=== PATIENT | male | born 1990 | race Caucasian/White ===

== ENCOUNTER 2021-10-27 12:58 | Inpatient (IN) | payer BC, SELFPAY ==
[2021-10-27] VITALS (17 sets, daily range): BP systolic 116–138; BP diastolic 67–87; PULSE 68–105; RESP 16–22; TEMP 36.5–37; O2SAT 96–100; BMI 23.1
--- NOTE | 2021-10-27 15:00 | W.ED.GENADLT ---
HPI - General Adult General: Chief complaint: General Medical Stated complaint: infection in the rectum Time Seen by Provider: 10/27/21 15:00 History of Present Illness: Mr. Proctor is a 31-year-old gentleman without significant past medical history presents to the emergency department due to rectal pain. Onset of symptoms was approximately 4 to 5 days ago and nontraumatic. He denies specific known inciting events. Since that time he has had near constant rectal pain worse with bowel movements and urinating. Intensity symptoms moderate to severe. He has had similar episodes in the past 2 that was cured with antibiotics. Unsure of the exact etiology. No fevers though does feel mildly nauseous. No other signs systemic illness. No other specific changes in health, exacerbating, or alleviating factors identified. Onset (ago): day(s) Radiation: non-radiation Severity: severe Exacerbating factors: other Review of Systems General: Reports: 10 or more systems reviewed and unremarkable except in HPI and below PFSH ED PFSH: Medical History Perirectal abscess Family History Brother Cancer Other Diabetes Social History Smoking and tobacco status: current every day smoker cigarettes Packs smoked per day: 1 Alcohol intake: never Physical Exam Const: COMMON NORMALS: alert GENERAL APPEARANCE: cooperative and well developed HENMT: COMMON NORMALS: normocephalic and atraumatic HEAD & SCALP: normocephalic and atraumatic Eye: COMMON NORMALS: conjunctivae normal CONJUNCTIVA: Yes conjunctivae normal SCLERA: sclerae normal Neck/C-Spine: COMMON NORMALS: supple GENERAL: Yes trachea midline Resp: COMMON NORMALS: normal respiratory effort and clear to auscultation bilaterally EFFORT & INSPECTION: Yes able to speak in complete sentences AUSCULTATION: clear to auscultation bilaterally Cardio: COMMON NORMALS: regular rhythm RATE: tachycardic RHYTHM: regular rhythm GI: COMMON NORMALS: Soft to palpation PALPATION: Yes Soft to palpation and No Tenderness to palpation present (GI) : OTHER: Rectal exam performed with steel fabricator present. No external abnormalities or fissures identified. Patient does not localize tenderness to one particular o'clock position. No evidence of erythema or purulent discharge. Limited palpation on digital rectal exam secondary to pain with diffuse tenderness, no palpable abnormality identified. Extremity: GENERAL: Yes normal exam except as noted and No edema Neuro: COMMON NORMALS: moves all extremities SENSORIUM/ORIENTATION: Yes alert and No Orientation impaired Psych: COMMON NORMALS: mental status grossly normal and Normal thought process present THOUGHT PROCESS: Normal thought process present Course ED course: - Patient was seen and evaluated by me at bedside - Patient placed on cardiac monitors, IV access obtained - Initial evaluation notable for exam as above - Labs and xrays personally interpreted by me - Fluids, analgesia given - Labs notable for leukocytosis, normal hemoglobin. Metabolic panel without significant abnormality. - Imaging notable for rectal abscess and possible enteritis though rectal abscess more likely explains patient's symptoms - Upon serial reexamination after treatment the patient was mildly improved only transiently with continued pain requiring opioid analgesics - Based on patient history, evaluation, and testing as interpreted the most likely cause of the patient's condition is rectal abscess - The results of ED evaluation were discussed with the patient including plan for admission due to requirement for level of care not available if discharged to prevent significant worsening/deterioration. - Discussed case with [facility]ACH[facility] P[employer]ER who discussed case with Dr Dewey with the general surgery service and he agreed to admit the patient for planned operative management in the morning - Patient was admitted without further deterioration or significant events. Note: Click bubbles or prepopulated goyal in note writing are used for assistance with data collection and billing and are inherently more limited than narrative and other text portions of this note. Please use narrative for additional clinical history and defer to narrative/free test for any case of contradictory information. If information appears in only free text or click bubble it should be considered present or absent as reported. Please contact note typewriters functional tester for clarifications of clinical information or contradictory information. MDM is a brief summary, contradictory or erroneous seeming information should be clarified and full note should be reviewed. Vital Signs: Vital signs: Vital Signs Temperature 98.1 F 10/30/21 11:33 Pulse Rate 78 10/30/21 11:33 Respiratory Rate 16 10/30/21 11:33 Blood Pressure 111/65 10/30/21 11:33 Pulse Oximetry 97 10/30/21 11:33 Oxygen Delivery Id thod 10/30/21 07:51 MDM - General Adult Medical Decision Making 31-year-old male presenting with nontraumatic rectal pain. Found to have rectal abscess. Admitted for operative intervention. Medical Records I reviewed the patient's medical records. Lab Data I reviewed the patient's lab results. : 10/29/21 10:58 10/29/21 10:58 Radiology Impressions Abdomen/Pelvis CT 10/27/21 15:21 IMPRESSION: 1. Crescentic 2.3 by 1.3 cm fluid collection along the posterior aspect of the rectum/anus concerning for an abscess, finding best seen series 4, image 91. 2. Prominent fluid in the small bowel without dilation suggestive of an enteritis. Laboratory Results WBC 14.7 10^3/uL (4.0-10.0) H 10/27/21 15:10 RBC 4.98 10^6/uL (4.1-5.3) 10/27/21 15:10 Hgb 15.7 g/dL (11.7-16.6) 10/27/21 15:10 Hct 46.3 % (42.0-52.0) 10/27/21 15:10 MCV 93.0 fl (80-94) 10/27/21 15:10 MCH 31.5 pg (28.0-34.0) 10/27/21 15:10 MCHC 33.9 g/dL (30.0-36.0) 10/27/21 15:10 RDW 13.3 % (12.1-15.1) 10/27/21 15:10 Plt Count 196 10^3/cmm (130-400) 10/27/21 15:10 MPV 11.7 fL (7.4-10.4) H 10/27/21 15:10 Neut % (Auto) 80.6 % 10/27/21 15:10 Lymph % (Auto) 11.4 % 10/27/21 15:10 [place] % (Auto) 6.6 % 10/27/21 15:10 Eos % (Auto) 0.7 % 10/27/21 15:10 Baso % (Auto) 0.3 % 10/27/21 15:10 Neut # (Auto) 11.84 10^3/uL (1.8-7.7) H 10/27/21 15:10 Lymph # (Auto) 1.7 10^3/uL (0.8-4.8) 10/27/21 15:10 [place] # (Auto) 1.0 10^3/uL (0.2-0.9) H 10/27/21 15:10 Eos # (Auto) 0.1 10^3/uL (0.0-0.8) 10/27/21 15:10 Baso # (Auto) 0.1 10^3/uL (0.0-0.1) 10/27/21 15:10 Nucleated RBC % (auto) 0 % 10/27/21 15:10 Nucleated RBCs # 0.0 /100WBC 10/27/21 15:10 Sodium 136 mmol/L (136-145) 10/27/21 15:10 Potassium 3.7 mmol/L (3.5-5.1) 10/27/21 15:10 Chloride 102 mmol/L (98-107) 10/27/21 15:10 Carbon Dioxide 25 mmol/L (22-29) 10/27/21 15:10 Anion Gap 12.7 (5-19) 10/27/21 15:10 BUN 8 mg/dL (6-20) 10/27/21 15:10 Creatinine 0.7 mg/dL (0.7-1.2) 10/27/21 15:10 GFR Calculation 130.7 mL/min (90-130) H 10/27/21 15:10 Glucose 96 mg/dL (65-115) 10/27/21 15:10 Calculated Osmolality 280 mOsm/kg (285-295) L 10/27/21 15:10 Calcium 9.5 mg/dL (8.5-10.5) 10/27/21 15:10 Urine Color Yellow (Yellow) 10/27/21 16:30 Urine Appearance Clear (CLEAR) 10/27/21 16:30 Urine pH 7 (5-7) 10/27/21 16:30 Ur Specific [place] 1.005 (1.005-1.030) 10/27/21 16:30 Urine Protein Neg (Negative) 10/27/21 16:30 Urine Glucose (UA) Norm (Normal) 10/27/21 16:30 Urine Ketones 1+ (Negative) H 10/27/21 16:30 Urine Blood Neg (Negative) 10/27/21 16:30 Urine Nitrate Negative (Negative) 10/27/21 16:30 Urine Bilirubin Neg (Negative) 10/27/21 16:30 Urine Urobilinogen 1 mg/dL (Negative) H 10/27/21 16:30 Ur Leukocyte Esterase Negative (Negative) 10/27/21 16:30 Discharge Plan Discharge Patient Disposition: Placed in Observation Admit Provider: Ricky Dewey Clinical Impression: Abscess, perianal Discharge Diet: Advance as tolerated Discharge Activity: Resume usual activity Coding Level of Care Code ED Machine Shop Specialist for Jamaal Fwd Exam Comprehensive
[2021-10-27 15:14] LABS: Basophils # 0.1 10^3/uL (0.0-0.1); Basophils % 0.3 %; Eosinophils # 0.1 10^3/uL (0.0-0.8); Eosinophils % 0.7 %; Hematocrit 46.3 % (42.0-52.0); Hemoglobin 15.7 g/dL (11.7-16.6); Lymphocytes # 1.7 10^3/uL (0.8-4.8); Lymphocytes % 11.4 %; Mean Corpuscular HGB Conc 33.9 g/dL (30.0-36.0); Mean Corpuscular Hemoglobin 31.5 pg (28.0-34.0); Mean Platelet Volume 11.7 fL (7.4-10.4); Monocytes % 6.6 %; Neutrophils # 11.84 10^3/uL (1.8-7.7); Neutrophils % 80.6 %; Nucleated Red Blood Cells % 0 %; Platelet Count 196 10^3/cmm (130-400); Red Blood Count 4.98 10^6/uL (4.1-5.3); Red Cell Distribution Width 13.3 % (12.1-15.1); White Blood Count 14.7 10^3/uL (4.0-10.0)
--- NOTE | 2021-10-27 15:21 | CTR_ITS ---
PROCEDURE INFORMATION: Exam: CT Abdomen And Pelvis With Contrast Exam date and time: 10/27/2021 3:51 PM Age: 31 years old Clinical indication: Abdominal pain; Acute; Additional info: Rectal pain, leukocytosis, eval deep infection/colitis TECHNIQUE: Imaging protocol: Computed tomography of the abdomen and pelvis with contrast. Radiation optimization: All CT scans at this facility use at least one of these dose optimization techniques: automated exposure control; mA and/or kV adjustment per patient size (includes targeted exams where dose is matched to clinical indication); or iterative reconstruction. Contrast material: OMNIPAQUE 350; Contrast volume: 80 ml; Contrast route: INTRAVENOUS (IV); COMPARISON: No relevant prior studies available. RADIATION DOSE METRICS: Total DLP (mGy-cm): 556.23 FINDINGS: Liver: Normal. No mass. Gallbladder and bile ducts: Normal. No calcified stones. No ductal dilation. Pancreas: Normal. No ductal dilation. Spleen: Normal. No splenomegaly. Adrenal glands: Normal. No mass. Kidneys and ureters: Normal. No hydronephrosis. Stomach and bowel: Crescentic 2.3 by 1.3 cm fluid collection along the posterior aspect of the rectum/anus concerning for an abscess, finding best seen series 4, image 91. Prominent fluid in the small bowel without dilation suggestive of an enteritis. Appendix: No evidence of appendicitis. Intraperitoneal space: Unremarkable. No free air. No significant fluid collection. Vasculature: Unremarkable. No abdominal aortic aneurysm. Lymph nodes: Unremarkable. No enlarged lymph nodes. Urinary bladder: Unremarkable as visualized. Reproductive: Unremarkable as visualized. Bones/joints: Unremarkable. No acute fracture. Soft tissues: Unremarkable. CT/CT abdomen pelvis w con* [id number] IMPRESSION: 1. Crescentic 2.3 by 1.3 cm fluid collection along the posterior aspect of the rectum/anus concerning for an abscess, finding best seen series 4, image 91. 2. Prominent fluid in the small bowel without dilation suggestive of an enteritis.
[2021-10-27] MEDS: morphine 4 mg/mL SDV 1 mL IVP (15:27)
[2021-10-27] MEDS: sodium chloride 0.9% 1,000 ML 999 ML IV (15:28)
[2021-10-27 15:30] LABS: Blood Urea Nitrogen 8 mg/dL (6-20); Calcium 9.5 mg/dL (8.5-10.5); Carbon Dioxide 25 mmol/L (22-29); Chloride 102 mmol/L (98-107); Glomerular Filtration Rate 130.7 mL/min (90-130); Glucose 96 mg/dL (65-115); Osmolality Calculated 280 mOsm/kg (285-295); Sodium 136 mmol/L (136-145)
[2021-10-27 15:31] LABS: Anion Gap 12.7 (5-19); Potassium 3.7 mmol/L (3.5-5.1)
[2021-10-27] MEDS: fentaNYL 50 mcg/mL INJ 2mL IVP ×2 (15:41→16:33)
[2021-10-27] MEDS: iohexol 350 mg/mL 100 mL Btl IV (15:53)
[2021-10-27 16:32] LABS: Add Urine Microscopic? NO; Charge for UA Resulting for Rev
[2021-10-27 16:34] LABS: Urine Appearance Clear (CLEAR); Urine Color Yellow (Yellow); pH Urine 7 (5-7)
[2021-10-27 16:35] LABS: Bilirubin Urine Neg (Negative); Blood Urine Neg (Negative); Glucose Urine UA Norm (Normal); Ketones Urine 1+ (Negative); Leukocyte Esterase Urine Negative (Negative); Nitrate Urine Negative (Negative); Protein Urine Neg (Negative); Specific Gravity, Urine 1.005 (1.005-1.030); Urobilinogen Urine 1 mg/dL (Negative)
[2021-10-27] MEDS: HYDROmorphone 1 mg/mL INJ 1 mL 0.5 MG IVP (17:13)
[2021-10-27] MEDS: acetaminophen 500 mg Tablet 1000 MG PO (17:57)
[2021-10-27] MEDS: ketorolac 30 mg/mL INJ 15 MG IVP (17:58)
[2021-10-27] MEDS: HYDROmorphone 1 mg/mL INJ 1 mL IVP ×4 (17:58→23:45)
[2021-10-27] MEDS: ciprofloxacin 400 MG/200 ML PREMIX 200 MG IV (19:08)
[2021-10-27] MEDS: sodium chloride 0.9% 1,000 ML 100 ML IV ×2 (19:09→22:12)
[2021-10-27] MEDS: metroNIDAZOLE IV 500 MG/100 ML PREMIX 100 MG IV (19:26)
--- NOTE | 2021-10-27 20:07 | PC.NURSE ---
report called to JESICA Nguyễn, patient accepted to room 267.
[2021-10-27] MEDS: ondansetron 2 mg/ML SDV 2 mL 4 MG IVP (22:11)
[2021-10-28] VITALS (23 sets, daily range): BP systolic 110–157; BP diastolic 51–79; PULSE 70–96; RESP 12–20; TEMP 36.1–37.1; O2SAT 82–99
[2021-10-28] MEDS: metroNIDAZOLE IV 500 MG/100 ML PREMIX 100 MG IV ×3 (03:03→19:34)
[2021-10-28] MEDS: HYDROmorphone 1 mg/mL INJ 1 mL IVP ×4 (03:37→10:54)
[2021-10-28] MEDS: ondansetron 2 mg/ML SDV 2 mL 4 MG IVP ×3 (03:38→13:20)
[2021-10-28] MEDS: ciprofloxacin 400 MG/200 ML PREMIX 200 MG IV ×2 (06:26→17:48)
--- NOTE | 2021-10-28 09:00 | PC.NURSE ---
patient to OR via stretcher in stable condition
--- NOTE | 2021-10-28 09:10 | P.HP_ITS ---
Providers/Chief Complaint Admitting Physician: Ricky Dewey DO Chief Complaint: infection in the rectum History of Present Illness Aly Proctor is a 31 year old male who presented to the hospital with a 16-day history of perirectal pain. He has a history of perirectal pain in the past treated 4 years ago with antibiotics. In the ER he got a CT of the rectum and pelvis which showed a small crescent of abscess surrounding the rectum distally. He denies any fever or chills. Denies any nausea or vomiting. The pain is dull to sharp and constant having a bowel movement or palpation makes pain worse. Nothing makes pain better. Pain does not radiate. He reports migraine headache. Review of Systems General: Reports: 10 or more systems reviewed and unremarkable except in HPI and below Medications/Allergies Home Medications Medication Instructions Recorded Confirmed Last Taken Type acetaminophen 500 mg capsule 1,000 mg PO Q6H PRN Pain 10/27/21 10/27/21 10/27/21 History Allergies Allergy/AdvReac Type Severity Reaction Status Date / Time No Known Allergies Allergy Verified 10/27/21 17:44 Vitals/I&O/Wt Last Vital Signs Temp 98.5 F 10/28/21 07:47 Pulse 93 10/28/21 07:47 Resp 18 10/28/21 08:53 BP 145/72 10/28/21 07:47 Pulse Ox 95 10/28/21 07:47 O2 Del Method 10/28/21 07:47 10/27/21 10/28/21 10/28/21 22:59 06:59 14:59 Intake Total 2300 / 2300 580 / 2880 1200 / 1200 Output Total 700 / 700 Balance 2300 / 2300 -120 / 2180 1200 / 1200 Weight last 48 hrs Weight 200 lb Physical Exam Narrative: General : Patient is well developed , no acute distress, oriented x3 Head : Normal cephalic, a-traumatic. Ears : Pinnae and external canal are normal. Hearing is normal. Eyes : PERRLA, Sclera and injection are normal. No conjunctival discharge. Nose : Mucous membranes are without erythema. Throat : buccal mucosa is normal, gums are without significant recession or hypertrophy. Lungs : Equal chest rise bilaterally, no use of accessory muscles, trachea is midline. Cor : Rate and rhythm are normal. Abdomen : Soft, ND, NT, no g/r/m Rectum: Tenderness palpation perirectally, especially on the right side. No fluctuance palpated Extremities : No edema, no cyanosis or clubbing, dorsalis pedis pulses are present bilaterally, non-tender to palpation of calves. Upper extremities are normal bilaterally. Back : non-tender to palpation, no CVA tenderness. Neuro : CN II - XII intact, Upper and lower extremities have equal and full strength Data : 10/27/21 15:10 10/27/21 15:10 Micro: Microbiology 10/27/21 18:20 Blood Culture - Preliminary Blood SPECIMEN COLLECTED 10/27/21 18:15 Blood Culture - Preliminary Blood SPECIMEN COLLECTED A&P Assessment and plan (1) Perirectal abscess: Status: Acute Plan Antibiotics Pain control 2 OR for incision and drainage of perirectal abscess I fully explained to him the risks of the surgery. There is a real risk of perirectal/perianal fistula from the abscess itself in from the procedure. There is a risk of damage to the rectum/sphincter. Risk of scar, numbness, pain, recurrence, damage to surrounding tissues, incontinence, or explained to the patient. He is understand the risks and wishes to proceed. Attestations Medical Necessity Statement*: Patient requires at least 1 more night in the hospital for IV antibiotics and dressing changes in the morning Coding Level of Care Code Acute [employer] Dynamics Ax Developer for Jamaal Murphy Diagnoses Perirectal abscess K61.1
[2021-10-28] MEDS: sodium chloride 0.9% 1,000 ML 30 ML IV (09:24)
--- NOTE | 2021-10-28 10:04 | PM.OP ---
Operative Report Date of procedure: October 28, 2021 Pre-op diagnosis: Perirectal abscess Post-op diagnosis: same Procedure done: Incision and drainage of perirectal abscess Specimens removed/disposition: Cultures Surgeon: Dr. Ricky Dewey DO Anesthesia: MAC Estimated blood loss (mL): 2 Complications: None apparent Brief History: This is a 31-year-old gentleman with a chronic perirectal abscess. Incision and drainage was indicated. He had significant pain. The risks and benefits were explained and documented. Procedure: Timeout was performed all present were in agreement. The perianal area was inspected prepped and draped in usual sterile fashion. 2% lidocaine with epinephrine was used to anesthetize just right of the anus. Hemostats were used to probe in the intrasphincteric space. Minimal purulence was found. Cultures were taken. Quarter inch I oh to form was placed into the tract. Sterile dressings were applied. Patient tolerated procedure well.
--- NOTE | 2021-10-28 10:31 | ANES.PREANE2 ---
Pre-Anesthetic Assessment Height/Weight: Height 1.98 m Weight 90.718 kg Temp Pulse Resp BP Pulse Ox O2 Del Method 97 F L 81 12 113/51 96 10/28/21 10:12 10/28/21 10:25 10/28/21 10:25 10/28/21 10:25 10/28/21 10:25 10/28/21 10:25 Operation Date: 10/28/21 10:10 Proposed Procedures p Incision And Drainage Perianal Abscess(Not Applicable) - Ricky Dewey DO Familial anesthetic complications: none Was Beta Roberto taken within 24 hours: N/A Was Clonidine taken within 24 hours: N/A Last intake: Intake Last Liquid Date 10/27/21 Last Liquid Time 22:30 Last Solid Date 10/26/21 Last Solid Time 20:00 Social Tobacco and No alcohol Exam alert, oriented x 3 and regular rate & rhythm Airway Submandibular: within normal limits Cervical ROM: within normal limits Mallampati: Class I Dentition: chipped Pulmonary Chronic Obstructive Pulmonary Disease Anesthetic Plan ASA status: 2 Anesthesia: MAC Medications/Allergies Home Medications Medication Instructions Recorded Confirmed Last Taken Type acetaminophen 500 mg capsule 1,000 mg PO Q6H PRN Pain 10/27/21 10/27/21 10/27/21 History Allergies Allergy/AdvReac Type Severity Reaction Status Date / Time No Known Allergies Allergy Verified 10/27/21 17:44 Current Medications Generic Name Dose Route Start Last Admin Trade Name Freq PRN Reason Stop Dose Admin Hydromorphone HCl 1 mg 10/27/21 19:32 10/28/21 08:53 Hydromorphone 1 Mg/Ml Inj 1 Ml IVP 1 mg Q1H PRN Administration MODERATE TO SEVERE PAIN Ciprofloxacin/Dextrose 400 mg in 200 mls @ 200 mls/hr 10/27/21 18:00 10/28/21 07:28 Cipro IV Infused Q12H TANVIR Infusion Protocol Metronidazole 500 mg in 100 mls @ 100 mls/hr 10/27/21 18:00 10/28/21 10:02 Flagyl Iv IV Infused Q8H TANVIR Infusion Protocol Sodium Chloride 1,000 mls @ 100 mls/hr 10/27/21 18:00 10/28/21 09:00 Sodium Chloride 0.9% IV Infused .Q10H TANVIR Infusion Sodium Chloride 1,000 mls @ 30 mls/hr 10/28/21 09:15 10/28/21 09:24 Sodium Chloride 0.9% IV 10/29/21 09:14 30 mls/hr .Q24H TANVIR Administration Ondansetron HCl 4 mg 10/27/21 21:23 10/28/21 08:54 Ondansetron 2 Mg/Ml Sdv 2 Ml IVP 4 mg Q6H PRN Administration NAUSEA AND VOMITING Data Anesthesia : 10/27/21 15:10 10/27/21 15:10 Short CBC 10/27/21 Range/Units 15:10 WBC 14.7 H (4.0-10.0) 10^3/uL Hgb 15.7 (11.7-16.6) g/dL Hct 46.3 (42.0-52.0) % MCV 93.0 (80-94) fl Plt Count 196 (130-400) 10^3/cmm Neut % (Auto) 80.6 % Neut # (Auto) 11.84 H (1.8-7.7) 10^3/uL BMP 10/27/21 15:10 Sodium 136 Potassium 3.7 Chloride 102 Carbon Dioxide 25 BUN 8 Creatinine 0.7 Glucose 96 Calcium 9.5 Urine 10/27/21 Range/Units 16:30 Urine Color Yellow (Yellow) Urine Appearance Clear (CLEAR) Urine pH 7 (5-7) Ur Specific [place] 1.005 (1.005-1.030) Urine Protein Neg (Negative) Urine Glucose (UA) Norm (Normal) Urine Ketones 1+ H (Negative) Urine Nitrate Negative (Negative) Urine Bilirubin Neg (Negative) Ur Leukocyte Esterase Negative (Negative) Microbiology 10/27/21 18:20 Blood Culture - Preliminary Blood SPECIMEN COLLECTED 10/27/21 18:15 Blood Culture - Preliminary Blood SPECIMEN COLLECTED Cardiac Studies: No Data to Display
--- NOTE | 2021-10-28 10:32 | ANE.PACU2 ---
Inpatient post-anesthesia follow up: Airway intact: Yes Vital signs: Temperature 97 F Pulse Rate 81 Respiratory Rate 12 Blood Pressure 113/51 Pulse Oximetry 96 Oxygen Delivery Me thod Room Air Oxygen Flow Rate Fraction of Inspir ed Oxygen Hydration adequate: Yes Nausea and vomiting: Yes Pain level: 3 Mental status: Baseline
[2021-10-28] MEDS: sodium chloride 0.9% 1,000 ML 100 ML IV ×2 (10:54→23:33)
[2021-10-28] MEDS: ketorolac 30 mg/mL INJ IVP ×3 (11:18→22:40)
[2021-10-28] MEDS: HYDROcodone-acetaminophen 7.5-325 mg Tablet 1 TAB PO ×3 (12:03→23:38)
[2021-10-28] MEDS: metoclopramide 5 mg/mL SDV 2 mL IVP (13:55)
[2021-10-29] VITALS (7 sets, daily range): BP systolic 113–138; BP diastolic 64–80; PULSE 75–91; RESP 16–18; TEMP 36.7–37.8; O2SAT 96–99
[2021-10-29] MEDS: metoclopramide 5 mg/mL SDV 2 mL IVP ×4 (02:29→18:57)
[2021-10-29] MEDS: metroNIDAZOLE IV 500 MG/100 ML PREMIX 100 MG IV ×3 (02:46→21:40)
[2021-10-29] MEDS: HYDROcodone-acetaminophen 7.5-325 mg Tablet 1 TAB PO ×3 (03:43→12:39)
[2021-10-29] MEDS: ketorolac 30 mg/mL INJ IVP ×4 (04:56→21:41)
[2021-10-29] MEDS: ciprofloxacin 400 MG/200 ML PREMIX 200 MG IV ×2 (05:37→18:16)
[2021-10-29] MEDS: thiamine 100 mg Tablet PO (08:31)
[2021-10-29] MEDS: multivitamin therapeutic Tablet 1 TAB PO (08:31)
[2021-10-29] MEDS: folic acid 1 mg Tablet PO (08:31)
[2021-10-29 11:21] LABS: Basophils % 0.3 %; Eosinophils # 0.1 10^3/uL (0.0-0.8); Hematocrit 36.7 % (42.0-52.0); Lymphocytes # 1.5 10^3/uL (0.8-4.8); Lymphocytes % 14.1 %; Mean Corpuscular HGB Conc 32.7 g/dL (30.0-36.0); Mean Corpuscular Hemoglobin 30.8 pg (28.0-34.0); Mean Corpuscular Volume 94.3 fl (80-94); Mean Platelet Volume 11.8 fL (7.4-10.4); Monocytes % 9.9 %; Neutrophils # 7.63 10^3/uL (1.8-7.7); Neutrophils % 74.4 %; Nucleated Red Blood Cells % 0 %; Platelet Count 138 10^3/cmm (130-400); Red Blood Count 3.89 10^6/uL (4.1-5.3); Red Cell Distribution Width 13.2 % (12.1-15.1); White Blood Count 10.3 10^3/uL (4.0-10.0)
[2021-10-29] MEDS: sodium chloride 0.9% 1,000 ML 100 ML IV ×2 (11:30→21:42)
[2021-10-29 11:36] LABS: Anion Gap 13.5 (5-19); Blood Urea Nitrogen 5 mg/dL (6-20); Calcium 8.6 mg/dL (8.5-10.5); Carbon Dioxide 23 mmol/L (22-29); Chloride 106 mmol/L (98-107); Glomerular Filtration Rate 156.1 mL/min (90-130); Glucose 88 mg/dL (65-115); Osmolality Calculated 285 mOsm/kg (285-295); Potassium 3.5 mmol/L (3.5-5.1); Sodium 139 mmol/L (136-145)
--- NOTE | 2021-10-29 21:08 | P.PN_ITS ---
Subjective Subjective: Patient doing well. Pain much improved Vitals/I&O/Wt Last Vital Signs Temp 99.1 F 10/29/21 20:00 Pulse 81 10/29/21 20:00 Resp 17 10/29/21 20:00 BP 133/80 10/29/21 20:00 Pulse Ox 98 10/29/21 20:00 O2 Del Method 10/29/21 16:00 10/29/21 10/29/21 10/29/21 06:59 14:59 22:59 Intake Total 580 / 3900 1300 / 1300 240 / 1540 Output Total 1050 / 1755 1050 / 1050 500 / 1550 Balance -470 / 2145 250 / 250 -260 / -10 Physical Exam Narrative: General: No acute distress, awake alert and oriented x3 Skin: No erythema or exudate. Packing in place Data : 10/29/21 10:58 10/29/21 10:58 Micro: Microbiology 10/28/21 10:00 Anaerobic Culture - Preliminary Other Source 10/27/21 18:20 Blood Culture - Preliminary Blood NEGATIVE TO DATE 10/27/21 18:15 Blood Culture - Preliminary Blood NEGATIVE TO DATE A&P Assessment and plan (1) Perirectal abscess: Status: Acute Plan Likely discharge home tomorrow Attestations Medical Necessity Statement*: Patient needs 1 more day of IV antibiotics and will be discharged home tomorrow Coding Level of Care Code Acute Firearms Instructor for Jamaal Murphy Diagnoses Perirectal abscess K61.1
[2021-10-30] MEDS: metoclopramide 5 mg/mL SDV 2 mL IVP ×2 (01:36→08:51)
[2021-10-30] MEDS: metroNIDAZOLE IV 500 MG/100 ML PREMIX 100 MG IV (01:37)
[2021-10-30 04:00] VITALS: BP 121/69; PULSE 103; RESP 17; TEMP 37.8; O2SAT 98
[2021-10-30] MEDS: ketorolac 30 mg/mL INJ IVP (04:09)
[2021-10-30] MEDS: HYDROcodone-acetaminophen 7.5-325 mg Tablet 1 TAB PO (04:20)
[2021-10-30] MEDS: ciprofloxacin 400 MG/200 ML PREMIX 200 MG IV (05:42)
[2021-10-30 05:55] VITALS: RESP 18
[2021-10-30] MEDS: HYDROmorphone 1 mg/mL INJ 1 mL IVP (05:55)
[2021-10-30 07:51] VITALS: BP 111/65; PULSE 78; RESP 16; TEMP 36.7; O2SAT 97
--- NOTE | 2021-10-30 08:21 | PM.DCS ---
Discharge Providers Date of Admission: 10/27/21 18:06 Date of Discharge: October 30, 2021 Attending Provider at Admission: Ricky Dewey DO Attending Provider at Discharge: Ricky Dewey DO Diagnoses at Discharge Discharge Diagnosis (1) Perirectal abscess: Status: Acute Reason for Visit Reason for Visit: infection in the rectum Hospital Course Hospital Course 31-year-old male presented to hospital with 16 days of rectal pain. CT showed a small perirectal abscess. He was admitted and placed on IV antibiotics. He underwent incision and drainage of a perirectal abscess. Abscess cavity was found to be chronic with minimal purulence. He stayed 2 days for IV antibiotics and was discharged home in good condition Physical Exam Narrative: General : Patient is well developed , no acute distress, oriented x3 Head : Normal cephalic, a-traumatic. Ears : Pinnae and external canal are normal. Hearing is normal. Eyes : PERRLA, Sclera and injection are normal. No conjunctival discharge. Nose : Mucous membranes are without erythema. Throat : buccal mucosa is normal, gums are without significant recession or hypertrophy. Lungs : Equal chest rise bilaterally, no use of accessory muscles, trachea is midline. Cor : Rate and rhythm are normal. Abdomen : Soft, ND, NT, no g/r/m Extremities : No edema, no cyanosis or clubbing, dorsalis pedis pulses are present bilaterally, non-tender to palpation of calves. Upper extremities are normal bilaterally. Back : non-tender to palpation, no CVA tenderness. Neuro : CN II - XII intact, Upper and lower extremities have equal and full strength Discharge Data Studies Completed and Pending Completed Studies During Hospitalization Category Date Time Status CT abdomen pelvis w con* [id number] Stat Cat Scan 10/27/21 15:21 Completed Pending at discharge Category Date Time Status Anaerobic Culture Routine Lab 10/28/21 10:00 Results Blood Culture Stat Lab 10/27/21 18:20 Results Prothrombin Time INR Routine Lab 10/30/21 07:35 Ordered Wound Culture and Gram Stain Routine Lab 10/28/21 10:00 Results Radiology Impressions Abdomen/Pelvis CT 10/27/21 15:21 IMPRESSION: 1. Crescentic 2.3 by 1.3 cm fluid collection along the posterior aspect of the rectum/anus concerning for an abscess, finding best seen series 4, image 91. 2. Prominent fluid in the small bowel without dilation suggestive of an enteritis. Laboratory Results WBC 10.3 10^3/uL (4.0-10.0) H 10/29/21 10:58 RBC 3.89 10^6/uL (4.1-5.3) L 10/29/21 10:58 Hgb 12.0 g/dL (11.7-16.6) 10/29/21 10:58 Hct 36.7 % (42.0-52.0) L 10/29/21 10:58 MCV 94.3 fl (80-94) H 10/29/21 10:58 MCH 30.8 pg (28.0-34.0) 10/29/21 10:58 MCHC 32.7 g/dL (30.0-36.0) 10/29/21 10:58 RDW 13.2 % (12.1-15.1) 10/29/21 10:58 Plt Count 138 10^3/cmm (130-400) 10/29/21 10:58 MPV 11.8 fL (7.4-10.4) H 10/29/21 10:58 Neut % (Auto) 74.4 % 10/29/21 10:58 Lymph % (Auto) 14.1 % 10/29/21 10:58 [place] % (Auto) 9.9 % 10/29/21 10:58 Eos % (Auto) 1.0 % 10/29/21 10:58 Baso % (Auto) 0.3 % 10/29/21 10:58 Neut # (Auto) 7.63 10^3/uL (1.8-7.7) 10/29/21 10:58 Lymph # (Auto) 1.5 10^3/uL (0.8-4.8) 10/29/21 10:58 [place] # (Auto) 1.0 10^3/uL (0.2-0.9) H 10/29/21 10:58 Eos # (Auto) 0.1 10^3/uL (0.0-0.8) 10/29/21 10:58 Baso # (Auto) 0.0 10^3/uL (0.0-0.1) 10/29/21 10:58 Nucleated RBC % (auto) 0 % 10/29/21 10:58 Nucleated RBCs # 0.0 /100WBC 10/29/21 10:58 Sodium 139 mmol/L (136-145) 10/29/21 10:58 Potassium 3.5 mmol/L (3.5-5.1) 10/29/21 10:58 Chloride 106 mmol/L (98-107) 10/29/21 10:58 Carbon Dioxide 23 mmol/L (22-29) 10/29/21 10:58 Anion Gap 13.5 (5-19) 10/29/21 10:58 BUN 5 mg/dL (6-20) L 10/29/21 10:58 Creatinine 0.6 mg/dL (0.7-1.2) L 10/29/21 10:58 GFR Calculation 156.1 mL/min (90-130) H 10/29/21 10:58 Glucose 88 mg/dL (65-115) 10/29/21 10:58 Calculated Osmolality 285 mOsm/kg (285-295) 10/29/21 10:58 Calcium 8.6 mg/dL (8.5-10.5) 10/29/21 10:58 Urine Color Yellow (Yellow) 10/27/21 16:30 Urine Appearance Clear (CLEAR) 10/27/21 16:30 Urine pH 7 (5-7) 10/27/21 16:30 Ur Specific Nitro 1.005 (1.005-1.030) 10/27/21 16:30 Urine Protein Neg (Negative) 10/27/21 16:30 Urine Glucose (UA) Norm (Normal) 10/27/21 16:30 Urine Ketones 1+ (Negative) H 10/27/21 16:30 Urine Blood Neg (Negative) 10/27/21 16:30 Urine Nitrate Negative (Negative) 10/27/21 16:30 Urine Bilirubin Neg (Negative) 10/27/21 16:30 Urine Urobilinogen 1 mg/dL (Negative) H 10/27/21 16:30 Ur Leukocyte Esterase Negative (Negative) 10/27/21 16:30 Procedures Performed Incision and drainage of perirectal abscess Vitals Last Vital Signs Temp 98.1 F 10/30/21 07:51 Pulse 78 10/30/21 07:51 Resp 16 10/30/21 07:51 BP 111/65 10/30/21 07:51 Pulse Ox 97 10/30/21 07:51 O2 Del Method 10/30/21 07:51 Discharge Plan Discharge Patient Disposition: Home Condition: Stable Prescriptions: New hydrocodone-acetaminophen 7.5-325 mg tablet 1 tab PO Q6H PRN (Reason: pain) Qty: 14 0RF amoxicillin-pot clavulanate 875-125 mg tablet 1 tab PO BID Qty: 24 0RF Held acetaminophen 500 mg Capsule 1,000 mg PO Q6H PRN (Reason: Pain) Hold Instructions: Resume on 11/04/21. Discharge Orders: Discharge Order (Routine); Ordered 10/30/21 Ordered By: Ricky Dewey Referrals: Ricky Dewey DO [Physician] - 2 weeks Ancelmo Alvarez DO [Physician] - 4-7 days (Please arrange new patient appointment/hospital follow up.) Discharge Diet: Advance as tolerated Discharge Activity: Resume usual activity Patient Instructions: Opioid Safety Discharge Attestations Time Spent in Discharge Care*: less than 30 min Quality Metrics Clinical Quality Measures [ No reported AMI, CVA or VTE this stay] Coding Level of Care Code Acute Chg [facility] note Diagnoses Perirectal abscess K61.1
[2021-10-30 08:42] LABS: INR 1.11 (0.8-1.2)
[2021-10-30] MEDS: folic acid 1 mg Tablet PO (08:51)
[2021-10-30] MEDS: thiamine 100 mg Tablet PO (08:51)
[2021-10-30] MEDS: multivitamin therapeutic Tablet 1 TAB PO (08:51)
--- NOTE | 2021-10-30 11:31 | PC.NURSE ---
Discussed discharge medications and follow up appointments with patient. Verbalized understanding.
[2021-10-30 11:33] VITALS: BP 111/65; PULSE 78; RESP 16; TEMP 36.7; O2SAT 97
== END 2021-10-30 11:33 | disposition home or self-care (01) | DRG 346 ==
LOC: ER 19:34 → MEDSURG 19:48
PROVIDERS: Physician Assistant; Admitting Provider Surgery; Emergency Provider Emergency Medicine; Visit Provider Surgery
PROC: 0D9P7ZZ Drainage of Rectum, Via Natural or Artificial Opening (ICD-10-PCS; principal; 2021-10-28 10:00)
DX: K61.1 Rectal abscess (principal)
CPT/HCPCS: 36415; 74177; 80048; 81003; 85025; 85610; 87040; 87070; 87075; 87205; 96365; 96372; 96375; 96376; 99285; J0744; J1170; J1885; J2250; J2270; J2405; J2704; J2765; J3010; J3411; J3490; J7030; Q9967; S0030

== ENCOUNTER 2022-01-12 10:50 | Outpatient (CLI) | payer BC, MEDICAID, SELFPAY ==
--- NOTE | 2022-01-12 | MR_ITS ---
WS: [id number] MRI HEAD WITH CONTRAST TECHNIQUE: Sagittal T1, T2 axial, T2 axial FLAIR, axial susceptibility weighted imaging, axial diffus ion weighted images, and coronal T2 images were obtained. Pre and post-T1 axial and post T1 coronal i mages. ADC and FSPGR images. CLINICAL INFORMATION: HEADACHES COMPARISON: None. FINDINGS: No evidence of restricted diffusion to suggest acute ischemia. Ventricular system and basal cisterns are patent. No suspicious intracranial signal abnormalities. Normal burgos-white differentiation. Normal posterior fossa. Normal vascular flow voids at the skull base. No extra-axial fluid collection s. No evidence of mass or mass effect. Mild mucosal thickening in the ethmoid air cells. Mastoid air cells well aerated. No hemosiderin on the susceptibly weighted images. Normal optic chiasm and pituitary infundibulum. Te mporal lobes and hippocampal formations are normal in appearance. No abnormal gadolinium enhancement. Normal dural venous sinuses. Minimal slightly low-lying cerebella r tonsils. Normal 4th ventricle. MR/MR head wo/w con [id number] IMPRESSION: 1. No evidence of restricted diffusion to suggest acute ischemia. 2. No suspicious intracranial signal abnormalities. Normal burgos-white differen tiation. 3. No hemosiderin on susceptibly weighted images. 4. No abnormal gadolinium enhancement. 5. No other suspicious findings.
[2022-01-12] MEDS: gadobenate dimeglumine 20 mL vial IV (11:41)
--- NOTE | 2022-01-12 11:45 | MR_ITS ---
WS: [id number] MRA HEAD TECHNIQUE: Axial 3-D TOF images obtained with axial images and axial, sagittal, and coronal 2-D refor matted images. CLINICAL INFORMATION: G44.019 - Episodic cluster headache, not intractable COMPARISON: None. FINDINGS: Distal vertebral arteries are patent. Basilar artery is patent. Normal vascularity to the [employer] territo ry bilaterally. Both ICAs are patent at the skull base. Normal vascularity to the ANN and MCA territories bilaterally . No evidence of proximal flow limiting stenosis or aneurysm. Patent anterior communicating artery. N o other suspicious findings. MR/MR angio head wo con [id number] IMPRESSION: Normal intracranial MRA.
== END 2022-01-12 10:51 | disposition home or self-care (01) ==
PROVIDERS: PCP Family Medicine; Visit Provider Nurse Practitioner
DX: G44.019 Episodic cluster headache, not intractable (principal); D64.9 Anemia, unspecified
CPT/HCPCS: 70544; 70553; 80053; 82728; 83540; 83550; 85025; 85651; 86140; A9577

== ENCOUNTER → 2024-09-29 10:55 | Outpatient (BNVA) | payer BC, MEDICAID, SELFPAY | PROVIDERS: PCP Family Medicine; Visit Provider Family Medicine | DX: Z13.6 Encounter for screening for cardiovascular disorders (principal) | CPT/HCPCS: 80053; 80061; 84439; 84443; 85025 ==